=== PATIENT | male | born 1990 | race Caucasian/White ===

== ENCOUNTER 2019-11-04 21:55 | Emergency (ER) | payer MEDICAID, OTHER ==
[~2019-11-04] VITALS: Ht 170.2 cm; Wt 68.0 kg
[2019-11-04 22:04] VITALS: BP 133/84
== END 2019-11-05 00:35 | disposition left against medical advice (07) ==
LOC: EDBD 21:55 → ER 21:55
DX: M79.662 Pain in left lower leg (principal); Z53.21 Procedure and treatment not carried out due to patient leaving prior to being seen by health care provider